=== PATIENT | female | born 1945 | race Caucasian/White ===

== ENCOUNTER 2017-06-08 05:46 | Inpatient (IN) | payer OTHER ==
[2017-06-08] VITALS (14 sets, daily range): BP systolic 92–161; BP diastolic 31–109
[~2017-06-08] VITALS: Ht 165.1 cm; Wt 68.0 kg
[2017-06-08] MEDS ORDERED: Bacitracin 50000 Units Vial ONE (06:53)
[2017-06-08] MEDS ORDERED: NeoSporin Gu Irrig 1ml Amp IRRIG ONE (06:53)
[2017-06-08] MEDS ORDERED: TYLENOL EXTRA500 MG ORAL (06:56)
[2017-06-08] MEDS ORDERED: ZANTAC150 MG ORAL (06:56)
[2017-06-08] MEDS ORDERED: DITROPAN10 MG ORAL (06:56)
--- NOTE | 2017-06-08 06:58 | Pre-Procedure Note/Attestation ---
Pre-Procedure Note/Attestation Complete Prior to Procedure Planned Procedure: left Procedure Narrative: Torn Left Quads Tendon, for repair. Indications for Procedure Pre-Operative Diagnosis: Torn Left Quads tendon. Attestation I attest that I discussed the nature of the procedure; its benefits; risks and complications; and alternatives (and the risks and benefits of such alternatives ), prior to the procedure, with the patient (or the patient's legal small business representative). I attest that, if there was a reasonable possibility of needing a blood transfusion, the patient (or the patient's legal small business representative) was given the [facility] standardized written summary, pursuant to the [place] Blood Safety Act ([place] Health and Safety Code # 1645, as amended). I attest that I re-evaluated the patient just prior to the surgery and that there has been no change in the patient's H&P, except as documented below: LEO GAMBOA Jun 08, 2017 06:58
[2017-06-08] MEDS ORDERED: Zemuron 50mg/5ml Inj IV ONE (07:00)
[2017-06-08] MEDS ORDERED: LR 1000ml ONE (07:00)
[2017-06-08] MEDS ORDERED: Ketorolac 30mg Inj ONE (07:00)
[2017-06-08] MEDS ORDERED: NS Irrig 1000ml ONE (07:00)
[2017-06-08] MEDS ORDERED: fentaNYL 100 mcg/2 mL IV ONE (07:00)
[2017-06-08] MEDS ORDERED: Sterile Water Irrig 1000ml IRRIG ONE (07:00)
[2017-06-08] MEDS ORDERED: Midazolam 2mg/2ml Inj ONE (07:00)
[2017-06-08] MEDS ORDERED: Metoclopramide 10mg/2ml Inj ONE (07:00)
[2017-06-08] MEDS ORDERED: Succinylcholine 20mg/ml 10ml vial ONE (07:00)
[2017-06-08] MEDS ORDERED: Propofol 200mg/20ml IV ONE (07:13)
[2017-06-08] MEDS ORDERED: LR 1000ml 1,000 ML IVLG SCH (09:01)
[2017-06-08] MEDS ORDERED: Ketorolac 30mg Inj IV PRN (09:15)
[2017-06-08] MEDS ORDERED: Midazolam 2mg/2ml Inj IVP PRN (09:15)
[2017-06-08] MEDS ORDERED: Hydromorphone 0.5mg/0.5ml inj IVP PRN (09:15)
[2017-06-08] MEDS ORDERED: Morphine Sulfate 2mg/ml Inj IVP PRN (09:15)
[2017-06-08] MEDS ORDERED: fentaNYL 100 mcg/2 mL IV PRN (09:15)
[2017-06-08] MEDS ORDERED: Metoclopramide 10mg/2ml Inj IVP PRN (09:15)
[2017-06-08] MEDS ORDERED: DiphenhydrAMINE 50mg/ml Inj IVP PRN (09:15)
--- NOTE | 2017-06-08 09:46 | Operative Note - PDOC ---
Operative Note Operative Note Pre-op Diagnosis: Torn Left Quads tendon. Procedure: Repair torn let quadraceps tendon Post-op Diagnosis: same as pre-op Surgeon: Isamar Monitoring Manager: DELON Christy Anesthesiologist: Antonia Anesthesia: general Specimen: none Complications: none Condition: stable Estimated Blood Loss: none Drains: none Implant(s) used?: LEO Bray Jun 08, 2017 09:46
[2017-06-08] MEDS ORDERED: Acetaminophen (Non formulary) 100 ML IV ONE (10:00)
[2017-06-08] MEDS ORDERED: HYDROmorphone 1mg/ml Carpuject SUBQ PRN (12:00)
[2017-06-08] MEDS: D5 1/2NS w/KCl 20mEq 1,000 ML IV SCH (13:23)
--- NOTE | 2017-06-08 15:00 | Operative Note - Dictated ---
DATE OF OPERATION: 06/08/2017 SURGEON: Osman Padgett M.D. WATER SUPERVISOR: Key Herzog ANESTHESIA: General endotracheal. ANESTHESIOLOGIST: Dr. Sammy Knight. PREOPERATIVE DIAGNOSIS: Status post total knee arthroplasty, left knee with prior attempt at quads repair, failed with quadriceps rupture and resulting extensor weakness and extensor block at 20-degree short of full extension. POSTOPERATIVE DIAGNOSIS: Status post total knee arthroplasty, left knee with prior attempt at quads repair, failed with quadriceps rupture and resulting extensor weakness and extensor block at 20-degree short of full extension. OPERATIVE PROCEDURE: Quadriplasty, excision of central scar, mobilization of the vastus medialis, intermedius, and vastus lateralis for repair of a 4 x 3 cm defect in the quads just proximal to the proximal pole of the patella. The patient was prepped and draped in the usual manner in supine position. The leg was prepped and draped freely. Examination of the leg revealed 20-degree extension lag with a palpable triangular defect, proximal to the superior pole of the patella. There was an old medial parapatellar incision. The inferior portion of the medial incision was incised. A lateral, transverse limb was made across at the superior pole of the patella and a lateral superior limb was made proximally at a distance of 4 to 5 cm. Incision was carried down through skin, subcutaneous tissue, scar tissue was removed from the extensor apparatus to expose the distal quads and the superior half of the patella as well as the medial and lateral retinaculum. The defect was excavated using cautery and a 15 blade exposing the top of the patella polyethylene component and the underlying trochlea of the metal total knee. The intermedius portion of the vastus had retracted approximately 3 or 4 cm and was tapered and atrophic at its distal edge. This was freed by the medialis, the intermediate and the medial and lateral aspects of the vastus proximally. The main healthy component was the vastus lateralis, which was attaching to the lateral retinaculum and not connected to the superior patella where it could be a functional knee extensor. A 2.5 cm segment of the vastus lateralis was freed proximally, so that it could be transposed and reattached to the proximal pole of the patella. The bone on the proximal patella surface was exposed and a soft tissue flap of the periosteum was dissected and reflected distally. The under surface of the soft tissue attached to the patella was also dissected into a volar flap or lip in order to receive the transposed vastus lateralis. A 2.5 cm segment of vastus lateralis was then replaced between the two soft tissue flaps at the top of the patella by suturing to the flap and then the transposed lateralis and then through the inferior flap and coming up through the tissue again in the form of a nail type suture. The superior suture was through the bony portion of the patella using an OS-6 needle and #1 Ethibond. Five such sutures were placed from lateral to medial in order to anchor the vastus lateralis to the superior pole of the patella. The remaining medialis was then freed proximally and transposed distally and placed over to reinforce the transposed lateralis and attached to the superior pole of patella similarly using sutures of #1 Ethibond OS or OS-6 needles. The lateral segments were closed bringing up the lateralis to the lateral edge of the repair. A prominent lateral edge of the patella was released and a full lateral release was accomplished where patella would slide smoothly over the trochlea. The medial retinaculum was also repaired closing the capsule of the knee joint medially. Small opening laterally was left with transposition of the patella centrally over the trochlea. The V-shaped incision over the patella was then closed using subcuticular and skin sutures. There was a small skin penetration V-shaped over the lateral edge of the intermediate flap. Skin appeared completely viable and the opening was only 1 cm. At 1 cm, the patient was placed in a bulky compression dressing and plaster splints anterior, posterior, and lateral. Returned to recovery room in good condition. Blood loss was less than 100 mL. No tourniquet was used. Osman Padgett M.D. DR: YADIEL JOB#: [id number] CC:
[2017-06-08] MEDS: DiphenhydrAMINE 50mg/ml Inj IVP PRN ×2 (15:15→23:15)
[2017-06-08] MEDS: ceFAZolin sod 1 GM in D5W 55 ML IV SCH ×2 (15:18→23:15)
[2017-06-08] MEDS: Norco 7.5mg/325mg tab ORAL PRN ×2 (17:01→21:03)
[2017-06-08] MEDS ORDERED: Acetaminophen 500mg (ES) tab ORAL PRN (19:45)
[2017-06-09 00:17] VITALS: BP 144/90
[2017-06-09] MEDS: D5 1/2NS w/KCl 20mEq 1,000 ML IV SCH ×2 (01:04→15:50)
[2017-06-09 04:00] VITALS: BP 140/89
[2017-06-09] MEDS: Norco 7.5mg/325mg tab ORAL PRN ×4 (06:09→20:39)
[2017-06-09 08:00] VITALS: BP 141/92
[2017-06-09] MEDS: Oxybutynin 5mg tab ORAL SCH ×2 (08:47→17:51)
--- NOTE | 2017-06-09 10:28 | 48 Hour Post Anesthesia Eval ---
Post Anesthesia Evaluation Procedure: Left quad tendon repair Date of Evaluation: Jun 09, 2017 Time of Evaluation: 12:30 Blood Pressure Systolic: 141 0: 92 Pulse Rate: 87 Respiratory Rate: 18 Temperature (Fahrenheit): 97.2 O2 Sat by Pulse Oximetry: 95 Airway: patent Nausea: No Vomiting: No Pain Intensity: 4 If pain is > 6 Comment: Asked the nursing staff to provide pain meds for patient now. Hydration Status: adequate Cardiopulmonary Status: Stable Mental Status/LOC: patient returned to baseline Follow-up Care/Observations: As per surgery Post-Anesthesia Complications: No anesthetic complication Follow-up care needed: N/A SUZANNE GARCIA M.D. Jun 09, 2017 10:28
[2017-06-09 12:00] VITALS: BP 156/95
[2017-06-09 16:00] VITALS: BP 135/85
--- NOTE | 2017-06-09 19:02 | General Progress Note ---
Assessment/Plan Assessment/Plan Torn Left Quads tendon. Repair torn let quadraceps tendon 1. incentive spirometry 2. DVT prophylaxis 3. PT evaluation and therapy 4. Hydration 5. Pain management 6. discharge once stable with outpatient follow up Subjective Date patient seen: Jun 08, 2017 Allergies: Coded Allergies: PENICILLINS (Verified Allergy, Unknown, rash , 06/08/17) Subjective post op Objective Last 24 Hour Vital Signs Date Time Temp Pulse Resp B/P (MAP) Pulse Ox O2 Delivery O2 Flow Rate FiO2 06/08/17 21:15 149/31 06/08/17 20:38 98.1 98 19 161/102 96 Nasal Cannula 3.0 Intake and Output Height (Feet): 5 Height (Inches): 5.00 Weight (Pounds): 150 Objective WDWN NAD clear breath sounds bilaterally without rhonchi or wheeze [id number] without MRG NABS nontender no HSM no CCE nonfocal ELISA TAYLOR Jun 09, 2017 19:02
--- NOTE | 2017-06-09 19:03 | General Progress Note ---
Assessment/Plan Assessment/Plan Torn Left Quads tendon. Repair torn let quadraceps tendon 1. incentive spirometry 2. DVT prophylaxis 3. PT evaluation and therapy 4. Hydration 5. Pain management 6. discharge once stable with outpatient follow up Subjective Allergies: Coded Allergies: PENICILLINS (Verified Allergy, Unknown, rash , 06/08/17) Subjective post op Objective Last 24 Hour Vital Signs Date Time Temp Pulse Resp B/P (MAP) Pulse Ox O2 Delivery O2 Flow Rate FiO2 06/09/17 16:51 97.0 06/09/17 16:00 97.0 101 18 135/85 95 Room Air 06/09/17 13:20 97.8 06/09/17 12:00 97.8 101 20 156/95 96 Room Air 06/09/17 10:28 87 18 95 06/09/17 08:00 97.2 87 18 141/92 95 Room Air 06/09/17 04:00 97.8 82 18 140/89 94 Room Air 06/09/17 00:17 98.1 91 20 144/90 96 Nasal Cannula 3.0 06/08/17 21:15 149/31 06/08/17 20:38 98.1 98 19 161/102 96 Nasal Cannula 3.0 Intake and Output 06/09/17 06/10/17 19:00 07:00 Intake Total 1150 ml Output Total 2200 ml Balance -1050 ml Intake Oral 400 ml IV Total 750 ml Output Urine Total 2200 ml Height (Feet): 5 Height (Inches): 5.00 Weight (Pounds): 150 Objective WDWN NAD clear breath sounds bilaterally without rhonchi or wheeze [id number] without MRG NABS nontender no HSM no CCE nonfocal ELISA TAYLOR Jun 09, 2017 19:03
[2017-06-09 20:57] VITALS: BP 160/95
[2017-06-10] VITALS (8 sets, daily range): BP systolic 142–178; BP diastolic 86–113
[2017-06-10] MEDS: Norco 7.5mg/325mg tab ORAL PRN ×3 (02:15→22:34)
[2017-06-10] MEDS: D5 1/2NS w/KCl 20mEq 1,000 ML IV SCH (05:00)
[2017-06-10] MEDS: Oxybutynin 5mg tab ORAL SCH ×2 (06:07→18:24)
[2017-06-10] MEDS ORDERED: LORazepam 1mg tab ORAL PRN (10:00)
--- NOTE | 2017-06-10 10:18 | General Progress Note ---
Assessment/Plan Assessment/Plan Torn Left Quads tendon. Repair torn let quadraceps tendon 1. incentive spirometry 2. DVT prophylaxis 3. PT evaluation and therapy 4. Hydration 5. Pain management 6. discharge Planning Subjective Allergies: Coded Allergies: PENICILLINS (Verified Allergy, Unknown, rash , 06/08/17) Subjective post op Objective Last 24 Hour Vital Signs Date Time Temp Pulse Resp B/P (MAP) Pulse Ox O2 Delivery O2 Flow Rate FiO2 06/10/17 08:39 166/112 06/10/17 08:00 97.2 107 20 166/112 97 Room Air 06/10/17 04:46 98.0 87 17 142/86 92 Room Air 06/10/17 00:54 98.6 100 20 148/87 94 Room Air 06/09/17 20:57 98.0 105 19 160/95 96 Room Air 06/09/17 16:51 97.0 06/09/17 16:00 97.0 101 18 135/85 95 Room Air 06/09/17 13:20 97.8 06/09/17 12:00 97.8 101 20 156/95 96 Room Air 06/09/17 10:28 87 18 95 Height (Feet): 5 Height (Inches): 5.00 Weight (Pounds): 150 Objective WDWN NAD clear breath sounds bilaterally without rhonchi or wheeze [id number] without MRG NABS nontender no HSM no CCE nonfocal ELISA TAYLOR Jun 10, 2017 10:18
[2017-06-10] MEDS: Norco 5mg/325mg tab ORAL PRN ×2 (12:09→16:51)
[2017-06-10 12:56] LABS: APPEARANCE,URINE SLIGHTLY CLOUDY; KETONES,URINE 1+ (NEGATIVE); LEUKOCYTE ESTERASE ,URINE 3+ (NEGATIVE); NITRITE,URINE NEGATIVE (NEGATIVE); PH,URINE 8 (4.5-8.0); PROTEIN,URINE NEGATIVE (NEGATIVE); UROBILINOGEN,URINE 1 MG/DL (0.0-1.0)
[2017-06-10 13:11] LABS: BACTERIA,URINE FEW /HPF; SQUAMOUS EPITHELIAL CELL,UR MODERATE /LPF (NONE/OCC); WBC,URINE 15-20 /HPF (0 - 2)
--- NOTE | 2017-06-10 15:13 | General Surgery Progress Note ---
General Surgery-Progress Note Subjective Symptoms: improved Objective Last 24 Hour Vital Signs Date Time Temp Pulse Resp B/P (MAP) Pulse Ox O2 Delivery O2 Flow Rate FiO2 06/10/17 13:30 143/94 Room Air 06/10/17 13:08 97.2 06/10/17 12:22 178/111 06/10/17 12:00 98.3 107 20 178/113 97 Room Air 06/10/17 10:37 101 161/104 Room Air 06/10/17 08:39 166/112 06/10/17 08:00 97.2 107 20 166/112 97 Room Air 06/10/17 04:46 98.0 87 17 142/86 92 Room Air 06/10/17 00:54 98.6 100 20 148/87 94 Room Air 06/09/17 20:57 98.0 105 19 160/95 96 Room Air 06/09/17 16:51 97.0 06/09/17 16:00 97.0 101 18 135/85 95 Room Air Dressing: dry Wound: clean Drains: none Laboratory Tests Test 06/10/17 12:00 Urine Color Yellow Urine Appearance Slightly cloudy Urine pH 8 (4.5-8.0) Urine Specific [place] 1.010 (1.005-1.035) Urine Protein Negative (NEGATIVE) Urine Glucose (UA) Negative (NEGATIVE) Urine Ketones 1+ (NEGATIVE) H Urine Occult Blood 1+ (NEGATIVE) H Urine Nitrite Negative (NEGATIVE) Urine Bilirubin Negative (NEGATIVE) Urine Urobilinogen 1 MG/DL (0.0-1.0) H Urine Leukocyte Esterase 3+ (NEGATIVE) H Urine RBC 2-4 /HPF (0 - 2) H Urine WBC 15-20 /HPF (0 - 2) H Urine Squamous Epithelial Cells Moderate /LPF (NONE/OCC) H Urine Bacteria Few /HPF (NONE) Additional Comments Patient not moving on own power. Minimal progress with transfers. PT and Discharge Planning needed to document needs (probable extended care). Left leg immobilization needed to protect tendon reconstruction. LEO Mata Jun 10, 2017 15:13
[2017-06-11] VITALS (7 sets, daily range): BP systolic 131–170; BP diastolic 80–118
[2017-06-11] MEDS: Norco 5mg/325mg tab ORAL PRN ×3 (02:33→14:32)
--- NOTE | 2017-06-11 08:06 | General Progress Note ---
Assessment/Plan Assessment/Plan Torn Left Quads tendon. Repair torn let quadraceps tendon 1. incentive spirometry 2. DVT prophylaxis 3. PT evaluation and therapy 4. Hydration 5. Pain management 6. discharge Planning and possible placement Subjective Allergies: Coded Allergies: PENICILLINS (Verified Allergy, Unknown, rash , 06/08/17) Subjective post op Objective Last 24 Hour Vital Signs Date Time Temp Pulse Resp B/P (MAP) Pulse Ox O2 Delivery O2 Flow Rate FiO2 06/11/17 07:48 170/118 06/11/17 04:37 97.5 80 18 140/80 93 06/11/17 00:15 98.1 82 17 146/94 92 Room Air 06/11/17 00:00 Room Air 06/10/17 20:18 97.8 94 20 145/91 95 Room Air 06/10/17 20:00 Room Air 06/10/17 17:52 97.2 06/10/17 16:25 97.2 18 148/92 96 Room Air 06/10/17 15:29 Room Air 06/10/17 13:30 143/94 Room Air 06/10/17 12:22 178/111 06/10/17 12:00 98.3 107 20 178/113 97 Room Air 06/10/17 10:37 101 161/104 Room Air 06/10/17 08:39 166/112 Laboratory Tests 06/10/17 12:00: Urine Color Yellow, Urine Appearance Slightly cloudy, Urine pH 8, Urine Specific [place] 1.010, Urine Protein Negative, Urine Glucose (UA) Negative, Urine Ketones 1+H, Urine Occult Blood 1+H, Urine Nitrite Negative, Urine Bilirubin Negative, Urine Urobilinogen 1H, Urine Leukocyte Esterase 3+H, Urine RBC 2-4H, Urine WBC 15-20H, Urine Squamous Epithelial Cells ModerateH, Urine Bacteria Few Height (Feet): 5 Height (Inches): 5.00 Weight (Pounds): 150 Objective WDWN NAD clear breath sounds bilaterally without rhonchi or wheeze [id number] without MRG NABS nontender no HSM no CCE nonfocal ELISA TAYLOR Jun 11, 2017 08:06
[2017-06-11] MEDS: Oxybutynin 5mg tab ORAL SCH ×3 (10:03→20:14)
[2017-06-11] MEDS ORDERED: NS 275ml ONE (16:49)
[2017-06-11] MEDS ORDERED: Tubing IV Secondary IV ONE (16:49)
[2017-06-11] MEDS: Norco 7.5mg/325mg tab ORAL PRN (18:36)
[2017-06-12] VITALS: BP 147/92
[2017-06-12] MEDS: Norco 5mg/325mg tab ORAL PRN ×2 (01:11→07:50)
[2017-06-12 04:00] VITALS: BP 159/101
[2017-06-12 08:00] VITALS: BP 145/91
[2017-06-12] MEDS: Ciprofloxacin 500mg tab ORAL SCH ×2 (10:59→22:04)
[2017-06-12 12:00] VITALS: BP 125/84
[2017-06-12] MEDS: Norco 10mg/325mg tab ORAL PRN ×2 (13:54→18:03)
[2017-06-12 16:00] VITALS: BP 127/87
[2017-06-12] MEDS: Oxybutynin 5mg tab ORAL SCH (17:29)
[2017-06-12 20:15] VITALS: BP 179/103
[2017-06-13] VITALS: BP 135/113
[2017-06-13] MEDS: Norco 10mg/325mg tab ORAL PRN ×5 (01:49→20:45)
[2017-06-13 04:00] VITALS: BP 125/76
[2017-06-13 08:00] VITALS: BP 122/80
--- NOTE | 2017-06-13 08:01 | General Progress Note ---
Assessment/Plan Assessment/Plan Torn Left Quads tendon. Repair torn let quadraceps tendon possible UTI 1. incentive spirometry 2. Cipro pending culture 3. PT evaluation and therapy 4. Hydration 5. Pain management 6. discharge to SNF Subjective Allergies: Coded Allergies: PENICILLINS (Verified Allergy, Unknown, rash , 06/08/17) Subjective post op Objective Last 24 Hour Vital Signs Date Time Temp Pulse Resp B/P (MAP) Pulse Ox O2 Delivery O2 Flow Rate FiO2 06/13/17 04:00 98.5 106 18 125/76 98 Nasal Cannula 2.0 06/13/17 00:00 97.8 113 18 135/113 97 Nasal Cannula 3.0 06/12/17 20:40 97 Nasal Cannula 3.0 32 06/12/17 20:40 Nasal Cannula 3.0 32 06/12/17 20:23 179/103 06/12/17 20:15 98.4 119 18 179/103 97 Nasal Cannula 3.0 06/12/17 16:00 98.3 87 16 127/87 97 Nasal Cannula 3.0 06/12/17 12:00 97.6 90 18 125/84 95 Nasal Cannula 2.0 86 Height (Feet): 5 Height (Inches): 5.00 Weight (Pounds): 150 Objective WDWN NAD clear breath sounds bilaterally without rhonchi or wheeze [id number] without MRG NABS nontender no HSM no CCE nonfocal ELISA TAYLOR Jun 13, 2017 08:01
[2017-06-13] MEDS: Oxybutynin 5mg tab ORAL SCH ×2 (09:00→17:31)
[2017-06-13] MEDS: Ciprofloxacin 500mg tab ORAL SCH (09:00)
[2017-06-13 12:00] VITALS: BP 121/81
[2017-06-13 16:00] VITALS: BP 134/91
[2017-06-13] MEDS: Bactrim DS (160mg/800mg) tab ORAL SCH (17:30)
[2017-06-13 20:02] VITALS: BP 125/86
[2017-06-14 04:02] VITALS: BP 136/87
[2017-06-14 07:25] VITALS: BP 138/86
--- NOTE | 2017-06-14 07:44 | General Progress Note ---
Assessment/Plan Assessment/Plan Torn Left Quads tendon. Repair torn let quadraceps tendon possible UTI 1. incentive spirometry 2. on Bactrim 3. PT evaluation and therapy 4. Hydration 5. Pain management 6. discharge to SNF when bed available Subjective Allergies: Coded Allergies: PENICILLINS (Verified Allergy, Unknown, rash , 06/08/17) Subjective post op Objective Last 24 Hour Vital Signs Date Time Temp Pulse Resp B/P (MAP) Pulse Ox O2 Delivery O2 Flow Rate FiO2 06/14/17 07:25 98.1 97 18 138/86 97 Room Air 06/14/17 04:02 98.1 102 18 136/87 95 Room Air 06/14/17 03:50 98 Nasal Cannula 2.0 28 06/14/17 03:50 Nasal Cannula 2.0 28 06/13/17 20:02 99.0 94 17 125/86 94 Room Air 06/13/17 16:00 98.6 96 18 134/91 97 06/13/17 12:00 98.3 94 18 121/81 97 Nasal Cannula 06/13/17 11:08 Nasal Cannula 2.0 28 06/13/17 11:08 97 Nasal Cannula 2.0 28 06/13/17 08:00 97.9 113 18 122/80 97 Nasal Cannula 2.0 Height (Feet): 5 Height (Inches): 5.00 Weight (Pounds): 150 Objective WDWN NAD clear breath sounds bilaterally without rhonchi or wheeze [id number] without MRG NABS nontender no HSM no CCE nonfocal ELISA TAYLOR Jun 14, 2017 07:44
[2017-06-14] MEDS: Norco 10mg/325mg tab ORAL PRN ×3 (08:36→20:45)
[2017-06-14] MEDS: Bactrim DS (160mg/800mg) tab ORAL SCH ×2 (08:37→20:45)
[2017-06-14] MEDS: Oxybutynin 5mg tab ORAL SCH ×2 (08:37→17:48)
[2017-06-14 12:00] VITALS: BP 117/76
[2017-06-14] MEDS ORDERED: Hydromorphone 0.5mg/0.5ml inj SUBQ PRN (13:00)
[2017-06-14 16:00] VITALS: BP 126/75
[2017-06-14 20:00] VITALS: BP 133/85
[2017-06-15] VITALS: BP 145/84
[2017-06-15 04:00] VITALS: BP 142/84
[2017-06-15] MEDS: Norco 10mg/325mg tab ORAL PRN ×3 (05:19→15:57)
[2017-06-15 08:00] VITALS: BP 151/88
--- NOTE | 2017-06-15 08:08 | General Progress Note ---
Assessment/Plan Assessment/Plan Torn Left Quads tendon. Repair torn let quadraceps tendon possible UTI 1. incentive spirometry 2. on Bactrim x 5 days 3. PT evaluation and therapy 4. taking PO well 5. Pain management 6. discharge to SNF when bed available Subjective Allergies: Coded Allergies: PENICILLINS (Verified Allergy, Unknown, rash , 06/08/17) Subjective post op Objective Last 24 Hour Vital Signs Date Time Temp Pulse Resp B/P (MAP) Pulse Ox O2 Delivery O2 Flow Rate FiO2 06/15/17 06:18 98.6 06/15/17 04:32 Room Air 06/15/17 04:32 Room Air 06/15/17 04:00 98.7 86 18 142/84 93 Room Air 06/15/17 00:00 98.8 90 18 145/84 93 Room Air 06/14/17 20:00 98.6 98 19 133/85 94 Room Air 06/14/17 16:00 98.7 100 19 126/75 96 Room Air 06/14/17 14:32 Room Air 06/14/17 14:31 96 Room Air 21 06/14/17 12:00 99.0 99 17 117/76 94 Room Air Height (Feet): 5 Height (Inches): 5.00 Weight (Pounds): 150 Objective WDWN NAD clear breath sounds bilaterally without rhonchi or wheeze [id number] without MRG NABS nontender no HSM no CCE nonfocal ELISA TAYLOR Jun 15, 2017 08:08
[2017-06-15] MEDS: Bactrim DS (160mg/800mg) tab ORAL SCH (08:24)
[2017-06-15] MEDS: Oxybutynin 5mg tab ORAL SCH ×2 (08:24→18:10)
--- NOTE | 2017-06-15 10:08 | Wound Care Consultation ---
Wound Assessment Wound Assessment : Wound Number: 1 Wound Present on Admission: No New Wound: Yes Status Change of Wound: No Wound Location Body Site Modif: left, upper, posterior Wound Location Body Site: thigh Wound Type: blister - fluid filled appearing denuded blister Peg Test: Does not Peg Wound Thickness: Partial Thickness Wound Length: 3.0 - scattered Wound Width: 7.5 - scattered Wound Drainage Description: Serosanguineous Wound Drainage Amount: Scant Wound Drainage Odor: None/Absent Tissue Surrounding Wound: Erythemic Wound General Appearance: Reddened Wound Comment #1 left posterior upper thigh denuded blister. Recommendation -Local wound care as ordered. -Offload affected site. -Keep clean and dry. -Turn and reposition. -Pressure reducing mattress. -Avoid shear and friction. -Assess posterior thigh site, assess brace avoid shear or friction , monitor brace intactness. -Assess and notify MD for any change of condition to skin. TONY CARDONA Jun 15, 2017 10:08
[2017-06-15 12:00] VITALS: BP 150/99
[2017-06-15 16:00] VITALS: BP 136/84
[2017-06-15] MEDS ORDERED: BACTRIM DS TAB1 EAC1 ORAL (16:39)
--- NOTE | 2017-06-16 11:02 | Discharge Summary ---
Discharge Summary Hospital Course Date of Admission Jun 08, 2017 at 05:46 Date of Discharge Jun 15, 2017 at 18:44 Admitting Diagnosis torn left quadriceps tendon Reason for Hospitalization: elective surgery HPI Lore Robles is a 71 year old female who was admitted on Jun 08, 2017 at 05:46 for Joint Pain Consultations dr Ramos - IM Procedures s/p 06/[address] Padgett Repair of torn left quadriceps tendon Hospital Course s/p surgery initially with IV hydration dressing C/D/I neurovascular stable incentive spirometry, taught and encourage to use DVT prophylaxis pain management PT evaluation and therapy Patient was not moving on her own Minimal progress with transfers. Left leg immobilization was provided to protect tendon reconstruction Placement to SNF for rehabilitation was found patient was stable for discharge . DISCHARGE DIAGNOSIS torn left quadriceps tendon s/p Repair of torn left quadriceps tendon Discharge Medications Continued Medications: Oxybutynin Chloride (Oxybutynin Chloride) 5 Mg Tablet 2 MG ORAL BID, TAB Ranitidine Hcl* (Zantac*) 150 Mg Tablet 75 MG ORAL DAILY, #30 TAB 0 Refills Trimethoprim/Sulfamethoxazole 160/800* (Bactrim Ds Tablet*) 1 Each Tablet 1 TAB ORAL TWICE A DAY for 2 Days, TAB Discharge Condition Upon Discharge: stable Discharge Disposition Patient was discharged to SNF/Subacute Facility(03) Discharge Diagnoses: Discharge Instructions Discharge Instructions Special Instructions I have been assigned to complete a D/C Summary on this account. I was not involved in the patient management Kari Yuan NP ([place]) Jun 16, 2017 11:02
== END 2017-06-15 18:44 | DRG 502 ==
LOC: SDSOVERFLO 05:46 → 3E 10:54
PROC: 0LQM0ZZ Repair Left Upper Leg Tendon, Open Approach (ICD-10-PCS; principal; 2017-06-08 07:00)
DX: S76.112A Strain of left quadriceps muscle, fascia and tendon, initial encounter (principal); I10 Essential (primary) hypertension; E83.119 Hemochromatosis, unspecified; Z96.652 Presence of left artificial knee joint; X58.XXXA Exposure to other specified factors, initial encounter; Z88.0 Allergy status to penicillin; Z86.19 Personal history of other infectious and parasitic diseases; Z96.643 Presence of artificial hip joint, bilateral
CPT/HCPCS: 36415; 81001; 86850; 86900; 86901; 87081; 87086; 87181; 94003; 94150; 94760; J2250; J2405; J2765